=== PATIENT | male | born 1985 | race Caucasian/White ===

== ENCOUNTER 2021-12-11 18:27 | Emergency (ER) | payer OTHER, SELFPAY ==
[2021-12-11 18:28] VITALS: BP 155/92; PULSE 82; RESP 16; TEMP 35.8; O2SAT 100; BMI 31.5
--- NOTE | 2021-12-11 18:30 | EKG12_ITS ---
Test Reason : CP Blood Pressure : / mmHG Vent. Rate : 073 BPM Atrial Rate : 073 BPM P-R Int : 146 ms QRS Dur : 108 ms QT Int : 358 ms P-R-T Axes : 049 036 036 degrees QTc Int : 394 ms Normal sinus rhythm with sinus arrhythmia Normal ECG No previous ECGs available Confirmed by GERONIMO STONE, GILLIAN ([id number]), book or script editor ANTOLIN DOWD ([id number]) on 12/17/2021 10:05:47 AM Referred By: Confirmed By:GILLIAN MELTON MD
[2021-12-11 18:45] LABS: Absolute Lymphocyte Count 4.84 X10^3/uL (0.83-4.51); Absolute Neutrophil Count 3.8 X10^3/uL (2.0-7.7); Basophil# 0.07 X10^3/uL; Basophil% 0.7 % (0-1); Eosinophil# 0.35 X10^3/uL; Eosinophils% 3.5 % (0-5); Hematocrit 46.8 % (40-54); Hemoglobin 15.7 g/dL (13.0-16.5); Lymphocyte # 4.84 X10^3/ul (0.83-4.51); Lymphocyte % 48.9 % (19-41); Mean Corp Hgb Conc 33.5 g/dL (32-36); Mean Corpuscular Hgb 29.3 pg (27.0-32.0); Mean Corpuscular Volume 87.3 fL (80-94); Mean Platelet Vol. 10.5 fl (6.2-12.0); Monocyte% 8.1 % (0-10); NRBC Flagged by Analyzer 0 % (0-5); Neutrophil # 3.82 X10^3/uL (2.7-7.7); Neutrophil % 38.6 % (47-70); Platelet Count 262 K/mm3 (150-450); RBC Distribution Width CV 13.2 % (11.6-14.6); Red Blood Count 5.36 M/mm3 (4.6-6.2); White Blood Count 9.9 K/mm3 (4.4-11.0)
--- NOTE | 2021-12-11 18:55 | RAD_ITS ---
STUDY: X-RAY CHEST REASON FOR EXAM: Male, 36 years old. CHEST PAIN chest pain TECHNIQUE: XR Chest 1 View COMPARISON: None FINDINGS: There is no demonstrated pleural abnormality. Normal size heart. Normal mediastinum and ventura. Normal visualized pulmonary arteries. Normal visualized aortic arch and descending thoracic aorta. Normal visualized thoracic spine. Normal visualized ribs, clavicles, and shoulders. There is no demonstrated abnormality of the visualized soft tissue structures of the upper abdomen. RAD/Chest 1 View (Portable) IMPRESSION: There are no acute findings. Electronically Signed: Jose Angel Sinclair MD at 19:16 EST , Service support ,
[2021-12-11] MEDS: Aspirin 81 MG TAB.CHEW 324 MG PO (19:44)
[2021-12-11 19:47] LABS: Anion Gap 7 (5-15); BUN 14 mg/dL (7-18); BUN/Creat Ratio 11.4 RATIO (10-20); Calcium,Total 9.8 mg/dL (8.5-10.1); Chloride 105 mmol/L (98-107); Creatinine, Serum 1.23 mg/dL (0.70-1.30); EST Glomerular Filtration Rate 71 mL/min (>60); Est Glom Filt Rate - Afr Amer 86 mL/min (>60); Estimated Creatinine Clearance 85.73 ml/min; Glucose 100 mg/dL (74-106); Potassium 3.6 mmol/L (3.5-5.1); Sodium Level 140 mmol/L (136-145); Troponin-I HS < 3 pg/mL (3.0-78.0)
[2021-12-11 20:24] VITALS: PULSE 77; RESP 18; O2SAT 96
--- NOTE | 2021-12-11 21:02 | ED.VIS.CHEST ---
HPI History of Present Illness Chief Complaint: Chest Pain Informant: patient Onset/Context/Timing Onset: Month(s) (2) Activity at onset: sudden Timing: Intermittent and Lasts (Approximately 3 hours) Quality: Positive for Stabbing and Tightness Location: Left Chest Worsened By: Exertion Relieved By: Rest Associated Symptoms: Positive for Dyspnea, Lightheadedness and Acid Reflux; Negative for Nausea, Vomiting, Diaphoresis, Cough, Fever and Palpitations Narrative Narrative: Patient presents with chest pain that has been intermittent over the last 2 months. Patient states it began approximately 3 hours prior to arrival again today. Patient states it has been constant. Patient states that he was walking when his pain began. Patient describes the pain as pressure and stabbing. Patient states the pain is over the left chest. Patient states his pain is worse with exertion and better with rest. Patient admits to some shortness of breath and lightheadedness. Patient also admits to some reflux symptoms. Patient states he had a stress test 2 months ago and it was normal. Patient has a family history of mother who had coronary artery disease in her 40s. Patient denies any other cardiac or PE risk factors. CVD Risk Factors: Positive for Family History 1' </=55; Negative for Hypertension, Diabetes, Hypercholesterolemia and Smoking PE Risk Factors: Negative for Recent Travel/Surgery, Recent Immobilization, Prior DVT or PE, Cancer and OCP + Smoking + >/=35 PFSH PFSH Medical History no medical history no medical history Home Medications NK 12/11/21 [History Last Taken Unknown] Allergy/AdvReac Type Severity Reaction Status Date / Time No Known Allergies Allergy Verified 12/11/21 18:27 Family History no significant family his Surgical History no surgical history no surgical history Social History Smoking Status: Never smoker ROS ROS ED Constitutional Constitutional ED: Denies chills or fever(s) Eyes Eyes: Reports blurry vision; Denies diplopia ENT ENT ED: Denies rhinorrhea or sore throat Cardiovascular Cardiovascular: Reports chest pain; Denies palpitations Respiratory/Chest Respiratory/Chest: Reports dyspnea; Denies cough Gastrointestinal Gastrointestinal: Reports nausea; Denies abdominal pain or vomiting Genitourinary Genitourinary ED: Denies dysuria or hematuria Musculoskeletal Musculoskeletal: Reports back pain; Denies neck pain Integumentary Denies abscess or rash Neurologic Neurologic: Reports headache(s); Denies weakness Allergic/Immunologic Allergic/Immunologic ED: Denies mouth swelling or urticaria EXAM Physical Exam Const Vital Signs: 12/11/21 18:28 12/11/21 18:57 12/11/21 20:24 Temperature 96.5 F L Temperature Source Temporal Pulse Rate 82 77 Respiratory Rate 16 18 Blood Pressure 155/92 H Blood Pressure Mean 113 Pulse Ox 100 96 Oxygen Delivery Method Room Air Room Air Room Air Positive well nourished and well developed General Appearance ED: well developed HEENT normocephalic and atraumatic Eyes PERRL and EOMs intact bilaterally Neck supple and no JVD Chest Wall palpation of chest normal Resp normal respiratory effort and clear to auscultation bilaterally Effort and Inspection: Negative for respiratory distress Cardio regular rate, regular rhythm and no murmurs GI normal to inspection, nondistended, normoactive bowel sounds, soft to palpation, non-tender and non-distended Extremity normal to inspection General Extremety ED: Negative for edema or tenderness General Extremity: Negative for edema Neuro oriented x3, CN's II-XII intact bilaterally and no sensory deficits noted Sensorium / Orientation: awake and alert Motor Exam: strength 5/5 throughout Psych mental status grossly normal Heart Score History: Moderately Suspicious ECG: Normal Age: </= 45 years Risk Factors: 1 or 2 Risk Factors Troponin: </= Normal Limit Score: 2 MDM MDM MDM Narrative Medical decision making narrative: EKG was obtained. On my interpretation, it showed a normal sinus rhythm with a rate of 73. CO interval, QRS interval, and QTc intervals were all normal. [place] was normal. There are no acute ST or T wave changes. Portable 1 view chest x-ray was obtained. On my interpretation, lung aaron are clear. There is normal cardiac silhouette. Bony thorax is normal. There is no acute process noted. Radiologist also interpreted the x-ray and agrees. CBC was within normal limits. Basic metabolic profile was normal. High-sensitivity troponin was less than 3. Patient has a HEART score of 2. Patient was advised that this is low risk for acute cardiac event. Patient was instructed to follow-up with his primary care physician for further evaluation. Patient and spouse understood and were agreeable with the plan. All questions were answered. Lab Data Attestation: I reviewed the patient's lab results. Labs: Laboratory Results - last 24 hr 12/11/21 12/11/21 18:40 18:40 WBC 9.9 RBC 5.36 Hgb 15.7 Hct 46.8 MCV 87.3 MCH 29.3 MCHC 33.5 RDW Std Deviation 42.0 RDW Coeff of Max 13.2 Plt Count 262 MPV 10.5 Immature Gran % (Auto) 0.200 Neut % (Auto) 38.6 L Lymph % (Auto) 48.9 H [place] % (Auto) 8.1 Eos % (Auto) 3.5 Baso % (Auto) 0.7 Absolute Neuts (auto) 3.8 Absolute Lymphs (auto) 4.84 H Nucleated RBC % 0 Sodium 140 Potassium 3.6 Chloride 105 Carbon Dioxide 28.0 Anion Gap 7 BUN 14 Creatinine 1.23 Estim Creat Clear Calc 85.73 Est GFR (MDRD) Af Amer 86 Est GFR (MDRD) Non-Af 71 BUN/Creatinine Ratio 11.4 Glucose 100 Calcium 9.8 Troponin I High Sens < 3 L Radiography Chest X-Ray - ED: 1 View, Read by ED Physician, Read by Radiologist and Normal Diagnostic Testing: Clinical Impression(s) from Imaging Studies Chest X-Ray 12/11/21 18:55 IMPRESSION: There are no acute findings. Electronically Signed: Jose Angel Sinclair MD at 19:16 EST , Service support , EKG Initial EKG: Attestation: I personally reviewed and interpreted this EKG as follows: Interpretation: Sinus Rhythm (73) and No Acute Injury Pattern Discharge Plan Triage Chief Complaint: Chest Pain ED Provider: Logan Dyson Dx/Rx/DC Orders Clinical Impression: Chest pain of uncertain etiology Instructions: ED Chest Pain, Uncertain Cause Prescriptions: No Action NK RF: 0 Primary Care Provider: Lul Saucedo Referrals: Lul Saucedo DO [Primary Care Provider] - 3-5 Days Disposition Disposition: Home, Self Care
[2021-12-11 21:21] VITALS: BP 156/78; PULSE 79; RESP 18; O2SAT 96
== END 2021-12-11 21:22 | disposition home or self-care (01) ==
PROVIDERS: Emergency Provider Emergency Medicine; PCP Physician Assistant; Visit Provider Emergency Medicine
DX: R07.9 Chest pain, unspecified (principal); R06.02 Shortness of breath; R42 Dizziness and giddiness; Z82.49 Family history of ischemic heart disease and other diseases of the circulatory system
CPT/HCPCS: 71045; 80048; 84484; 85025; 93005; 99285; A4216

== ENCOUNTER → 2023-10-19 | Outpatient (CLI) | payer OTHER, SELFPAY ==
[2023-10-19 17:43] LABS: Hematocrit 47.8 % (40-54); Hemoglobin 15.7 g/dL (13.0-16.5); Mean Corp Hgb Conc 32.8 g/dL (32-36); Mean Corpuscular Hgb 29.5 pg (27.0-32.0); Mean Corpuscular Volume 89.7 fL (80-94); Mean Platelet Vol. 9.7 fl (6.2-12.0); Platelet Count 253 K/mm3 (150-450); RBC Distribution Width CV 13.6 % (11.6-14.6); RBC Distribution Width SD 44.4 fl (35.1-43.9); Red Blood Count 5.33 M/mm3 (4.6-6.2); White Blood Count 8.8 K/mm3 (4.4-11.0)
[2023-10-19 18:01] LABS: Hemoglobin A1c 5.5 % (3.8-5.6)
[2023-10-19 18:02] LABS: Progesterone Level 0.37 ng/mL (See Comment); Vitamin B12 638 pg/mL (211-911); Vitamin D,25 Hydroxy 24.7 ng/mL
[2023-10-19 18:33] LABS: ALB/GLOB Ratio 1.1 RATIO (0.9-2.4); AST(SGOT) 39 U/L (15-37); Alanine Aminotransfer ALT/SGPT 118 U/L (16-61); Albumin, Serum 4.4 g/dL (3.2-5.0); Alkaline Phosphatase 50 U/L (45-117); Anion Gap 9 (5-15); BUN 9 mg/dL (7-18); BUN/Creat Ratio 8.9 RATIO (10-20); CRP, High Sensitivity Cardiac 0.82 mg/L; Calcium,Total 9.1 mg/dL (8.5-10.1); Chloride 105 mmol/L (98-107); Cholesterol 241 mg/dL (200); Creatinine, Serum 1.01 mg/dL (0.70-1.30); EST Glomerular Filtration Rate 88 mL/min (>60); Est Glom Filt Rate - Afr Amer 106 mL/min (>60); Estradiol 46.4 pg/mL; Follicle Stimulating Hormone 3.5 mIU/mL; Free T3 2.8 pg/mL (2.18-3.98); Globulin 4.1 g/dL (2.2-4.2); Glucose 87 mg/dL (74-106); High Density Lipoprotein 55 mg/dL; Iron 109 ug/dL (65-175); Luteinizing Hormone 1.7 mIU/mL; Magnesium 2.2 mg/dL (1.6-2.6); PSA,Total- Diagnostic 0.19 ng/mL (0.0-4.0); Potassium 3.8 mmol/L (3.5-5.1); Protein, Total 8.5 g/dL (6.4-8.2); Sodium Level 139 mmol/L (136-145); T4 Free Direct 0.43 ng/dL (0.76-1.46); T4 Total, Thyroxin 2.6 ug/dL (4.5-12.1); Triglycerides 148 mg/dL; Very Low Density Lipoprotein 30 mg/dL (5-40)
[2023-10-27 14:09] LABS: Insulin Like Growth Factor 144 ng/mL (90-278); Sex Hormone-binding Globulin 16.2 nmol/L (16.5-55.9); Testosterone, Free 5.91 ng/dL (5.00-21.00); Testosterone, Total 211 ng/dL (264-916)
== END | disposition home or self-care (01) ==
PROVIDERS: PCP Physician Assistant; Referring Provider Registered Nurse; Visit Provider Registered Nurse
DX: R53.82 Chronic fatigue, unspecified (principal); M62.81 Muscle weakness (generalized)
CPT/HCPCS: 36415; 80053; 80061; 82306; 82533; 82607; 82627; 82670; 82746; 83001; 83002; 83036; 83540; 83735; 84144; 84146; 84153; 84270; 84305; 84402; 84403; 84436; 84439; 84443; 84481; 85027; 86141; 82626